=== PATIENT | female | born 1955 | race Caucasian/White ===

== ENCOUNTER 2016-10-03 10:39 | Emergency (ER) | payer MEDICARE ==
[2011-10-21 18:38] VITALS: BMI 38.1
== END 2016-10-03 15:26 | disposition left against medical advice (07) ==
LOC: D.ER 10:39
DX: Z04.1 Encounter for examination and observation following transport accident (principal)

== ENCOUNTER 2016-11-28 05:47 | Emergency (ER) | payer MEDICARE ==
[2011-10-21 18:38] VITALS: BMI 38.1
== END 2016-11-28 06:24 | disposition home or self-care (01) ==
LOC: D.ER 05:47
DX: J02.9 Acute pharyngitis, unspecified (principal); M54.9 Dorsalgia, unspecified; F32.9 Major depressive disorder, single episode, unspecified

== ENCOUNTER 2017-09-06 02:37 | Emergency (ER) | payer MEDICARE ==
[2011-10-21 18:38] VITALS: BMI 38.1
[2017-09-06 03:11] LABS: BASOPHILS 0.3 % (0-2); EOSINOPHILS 2.1 % (0-7); HEMATOCRIT 39.1 % (36.0-48.0); HEMOGLOBIN 12.6 g/dL (12-16); IMMATURE GRANULOCYTES 0.4 % (0-5); LYMPHOCYTES 38.9 % (15-50); MCH 28.6 pg (26.0-34.0); MCHC 32.2 g/dL (31.0-37.0); MCV 88.9 fL (80.0-100.0); MEAN PLATELET VOLUME 9.6 fL (7.4-10.4); MONOCYTES 7.4 % (2-11); NEUTROPHILS 50.9 % (40-80); PLATELET COUNT 186 10x3/uL (130-400); RDW 12.6 % (11.5-14.5)
[2017-09-06 03:22] LABS: ALBUMIN 3.5 g/dL (3.4-5.0); ALKALINE PHOSPHATASE 93 U/L (46-116); ALT (SGPT) 28 U/L (10-68); BILIRUBIN - TOTAL 0.22 mg/dL (0.2-1.3); CALC OSMOLALITY 284 mosm/kg (275-300); CALCIUM 8.9 mg/dL (8.5-10.1); CARBON DIOXIDE 31.2 mmol/L (21.0-32.0); CHLORIDE - SERUM 103 mmol/L (98-107); CREATININE - SERUM 0.8 mg/dL (0.6-1.3); GLUCOSE 98 mg/dL (74-106); POTASSIUM - SERUM 4.1 mmol/L (3.5-5.1); PROTEIN - SERUM 7.4 g/dL (6.4-8.2); SODIUM 142 mmol/L (136-145); UREA NITROGEN 19 mg/dL (7-18); eGFR NON AFRICAN AMERICAN 77 mL/min (90-120)
== END 2017-09-06 03:36 | disposition home or self-care (01) ==
LOC: D.ER 02:37
PROVIDERS: Family Medicine
DX: M25.561 Pain in right knee (principal); M25.861 Other specified joint disorders, right knee; M54.40 Lumbago with sciatica, unspecified side

== ENCOUNTER 2017-10-28 13:22 | Emergency (ER) | payer MEDICARE ==
[2011-10-21 18:38] VITALS: BMI 38.1
== END 2017-10-28 15:08 | disposition home or self-care (01) ==
LOC: D.ER 13:22
DX: M54.16 Radiculopathy, lumbar region (principal)

== ENCOUNTER 2018-06-18 21:26 | Emergency (ER) | payer MEDICARE | END 2018-06-18 21:57 | disposition home or self-care (01) | LOC: D.ER 21:26 | DX: S86.811A Strain of other muscle(s) and tendon(s) at lower leg level, right leg, initial encounter (principal); X58.XXXA Exposure to other specified factors, initial encounter; Y93.89 Activity, other specified; Y92.89 Other specified places as the place of occurrence of the external cause; J44.9 Chronic obstructive pulmonary disease, unspecified; F17.200 Nicotine dependence, unspecified, uncomplicated ==

== ENCOUNTER 2018-08-17 12:30 | Emergency (ER) | payer MEDICARE ==
[~2018-08-17] VITALS: Ht 165.1 cm; Wt 101.8 kg
[~2018-08-17 12:30] MED LIST: NORCO 5/325 TAB1 TAB PO; ROBAXIN500 MG PO
[2018-08-17 12:35] VITALS: BP 123/81; Ht 165.1 cm; Wt 101.8 kg
== END 2018-08-17 15:03 | disposition left against medical advice (07) ==
LOC: D.ER 12:30
DX: M79.605 Pain in left leg (principal)